=== PATIENT | male | born 1970 ===

== ENCOUNTER 2020-12-01 09:00 | Emergency (ER) | payer OTHER, SELFPAY ==
--- NOTE | ~2020-12-01 | XR_ITS ---
XR foot RT min 3V 12/01/2020 09:31 Indication: Status post fall. Right foot pain. Procedure: 4 views right foot Comparison: No prior studies for comparison. Findings: There are erosive changes involving the lateral margin of the fifth proximal and middle pha langes. Lisfranc joint intact. Mild osteoarthritis of the first MTP joint. Mild degenerative changes of the ankle. No acute fracture or traumatic malalignment. Impression: 1: No acute fracture. 2: Erosive changes lateral margins at the fifth PIP joint, suspicious for inflammatory arthritis. Co rrelate clinically. Infection is less favored in the absence of appropriate clinical findings. 3: Mild polyarticular osteoarthritis. Reviewed, dictated and finalized at location A. 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 2: Erosive changes lateral margins at the fifth PIP joint, suspicious for infl ammatory arthritis. Correlate clinically. Infection is less favored in the abse nce of appropriate clinical findings. 3: Mild polyarticular osteoarthritis.
[2020-12-01 09:21] VITALS: BP 141/97; PULSE 76; RESP 16; TEMP 36.3; O2SAT 100
--- NOTE | 2020-12-01 09:21 | ED.LOWEXIN ---
HPI - Extremity Injury (Lower) General Chief Complaint: Extremity Injury, Lower Stated Complaint: Right foot pain Source: patient and RN notes reviewed Mode of arrival: ambulatory Limitations: no limitations History of Present Illness HPI Narrative: This is a 50-year-old white male who presented to urgent care today with complaints of pain to his right foot after stepping in a hole. According to patient he stepped in a hole and heard a crack he also noted that while he had his boot on he felt as if his foot was swelling. Patient pulses are palpable, he has sensation to the right lower extremity, he is able to move his toes and foot. He does complain of pain anterior lateral side of his foot near his big toe when extending his toes outward. He also reports pain when he bears weight to the right foot. the patient denies SOB, CP, palpitation, extremity numbness, lightheadedness, dizziness, constipation, diarrhea, chills, or fever. This document was completed by using [employer] speech recognition software, therefore customer orders clerk variances may occur. Despite proofreading, typographical errors may also occur. Related Data Home Medications Medication Instructions Recorded Confirmed No Home Medications 12/01/20 12/01/20 Allergies Allergy/AdvReac Type Severity Reaction Status Date / Time No Known Allergies Allergy Verified 12/01/20 09:22 Review of Systems Review of Systems: All systems reviewed & are unremarkable except as noted in HPI and below PMFSH Social History Social History Smoking status: Never smoker Alcohol intake: never Gender identity (if verbalized by the patient): Male Exam Narrative: Exam Narrative: GENERAL: This is a well-nourished, well-developed patient, in no apparent distress. HEAD: normocephalic, atraumatic. EYES: PERRL. Sclera clear/white. Vision is grossly intact. EARS: External ears normal, auditory canals clear and without drainage, TMs normal without perforation. Hearing grossly intact. NOSE: External nose normal with no obvious nasal discharge, nares without redness, no rhinorrhea. THROAT: Mucous membranes moist, posterior pharynx clear. NECK: Neck supple, non-tender without lymphadenopathy, masses or thyromegaly. CARDIOVASCULAR: Regular rate and rhythm without murmurs, gallops, or rubs. RESPIRATORY: Clear to auscultation. Breath sounds equal bilaterally. No wheezes, rales, or rhonchi. GASTROINTESTINAL: Abdomen soft, non-tender, nondistended. Bowel sounds are active. No hepato-splenomegaly, or palpable masses. No guarding. SKIN: warm, intact with no suspicious lesions or rash, good texture and turgor. NEURO: awake, alert, and oriented to person, place and time. There were no obvious focal neurologic abnormalities. Steady gait EXTREMITIES: Normal range of motion. No edema. No calf tenderness. Negative Homans sign bilaterally. Positive with plantarflexion and dorsifexion of the right foot no edema or erythema noted. Nontender with palpation BACK: Nontender without deformity or crepitance. No flank tenderness. Course Vital Signs Vital signs: Vital Signs Temperature 97.4 F L 12/01/20 09:21 Pulse Rate 76 12/01/20 09:21 Respiratory Rate 16 12/01/20 09:21 Blood Pressure 141/97 H 12/01/20 09:21 Pulse Oximetry 100 12/01/20 09:21 Temperature 97.4 F L 12/01/20 09:21 Pulse Rate 76 12/01/20 09:21 Respiratory Rate 16 12/01/20 09:21 Blood Pressure 141/97 H 12/01/20 09:21 Pulse Oximetry 100 12/01/20 09:21 MDM - Extremity Injury (Lower) Differential Diagnosis Differential diagnosis: Likely ankle sprain and strain and ankle fracture Discharge Plan Discharge Clinical Impression: Sprain and strain Patient Disposition: Home, Self-Care Condition: Stable Instructions: Antibiotic Form, Sprain (ED) Additional Instructions: Ice to the area 20-30 minutes 4-6 times a day Elevate above h
--- NOTE | 2020-12-01 09:26 | PC.NURSE ---
0911- Pt reports he just drank a red bull
== END 2020-12-01 09:45 | disposition home or self-care (01) ==
PROVIDERS: Emergency Provider Nurse Practitioner
DX: S93.601A Unspecified sprain of right foot, initial encounter (principal); S96.911A Strain of unspecified muscle and tendon at ankle and foot level, right foot, initial encounter; W17.2XXA Fall into hole, initial encounter
CPT/HCPCS: 73630; 99213; G0463

== ENCOUNTER → 2021-09-28 09:44 | Outpatient (CLI) | payer OTHER, SELFPAY ==
--- NOTE | ~2021-09-28 | MR_ITS ---
EXAMINATION: MR hand LT wo con DATE: 09/28/2021 10:30 INDICATION: Traumatic rupture of ligament of the left middle finger TECHNIQUE: Magnetic resonance imaging (MRI) of the left hand was performed without intravenous contra st to include the metacarpals and digits. Sequences included sagittal, coronal, and axial proton-dens ity weighted fast spin echo without and with fat saturation. COMPARISON: Left hand radiographs dated 04/23/1960 FINDINGS: Bone alignment is normal. Old healed avulsion fracture at the dorsal base of the third distal phalanx . No acute fracture. Normal marrow signal with no reactive edema. No joint effusions, synovitis or er osions to suggest inflammatory arthritis. The collateral ligament complex at the metacarpophalangeal and interphalangeal joints are normal. Minimal fluid extending along the flexor tendon sheath of the third digit at the level of the neck of the metacarpal consistent with mild tenosynovitis. Tendinopat hy of the flexor tendons of the third digit which demonstrate fusiform thickening and mild increased signal at the level of the neck of the proximal phalanx. There is minimal increased separation of the flexor tendons from the volar aspect of the proximal diaphysis of the proximal phalanx in the region of the A2 lexy. Poorly along either side of the tendon appears thickened with suggestion of a part ial tear along the ulnar side of the lexy. The visualized portions of the remaining flexor and exte nsor tendons and flexor lexy systems are normal. Partially visualized ganglion cyst dorsal aspect o f the carpus which measures up to 6 x 4 mm. Visualized intrinsic musculature of the hand is unremarka ble. IMPRESSION: 1. Likely partial tear along the ulnar side of the A2 lexy of the left third digit with only neglig ible increase in the separation of the tendon and the volar aspect of the bone. There is associated m ild tendinopathy distal to the level of the A2 lexy and mild tenosynovitis proximal to the metacarp ophalangeal joint. Reviewed, dictated and finalized at location A. IMPRESSION: 1. Likely partial tear along the ulnar side of the A2 lexy of the left third digit with only negligible increase in the separation of the tendon and the vol ar aspect of the bone. There is associated mild tendinopathy distal to the leve l of the A2 lexy and mild tenosynovitis proximal to the metacarpophalangeal j oint.
== END ==
PROVIDERS: Visit Provider Plastic Surgery
DX: S63.403A Traumatic rupture of unspecified ligament of left middle finger at metacarpophalangeal and interphalangeal joint, initial encounter (principal)
CPT/HCPCS: 73218

== ENCOUNTER 2021-10-26 08:19 | Outpatient (RCR) | payer OTHER, SELFPAY ==
--- NOTE | 2021-10-26 09:38 | OTOPEVAL ---
OCCUPATIONAL THERAPY INITIAL EVALUATION REPORT 10/26/21 West is a 51 year-old, right handed male who presents to outpatient hand therapy with limited active flexion of the left middle finger's PIP joint. Initially the PIP joint was only able to flex ~65-68*. When pressure is applied to the area of the A2 lexy, active flexion of the PIP joint increases to 90-95*. Discussed these findings and how this relates to the MRI findings - A2 lexy disfunction. Issued ROM HEP to help facilitate improved flexibility of the PIP joint and to facilitate improved tendon glide. Discussed taping technique around P1 of the left middle finger to help increase the mechanical advantage of the flexor tendons at the A2 lexy. Recommend that he uses tape when lifting and with any heavy hand use. Also recommended that he continue to take a break from [email or web address] for now. Patient verbalizes excellent understanding of all materials today. No follow up appointments have been made at this time. Plan to have the patient utilize the taping technique, continue to work on ROM, and to call for a follow up as needed. Plan to leave his chart open x4 weeks to allow him to return as needed. Will plan to follow up with patient via phone call in 3 weeks if he has not contacted our office for an appointment. Due to the chronicity of the condition, prognosis is guarded. Thank you for referring West Avilez to [facility].? The patient is scheduled to be seen for therapy? 0-1x/week for 4 weeks. Please review, sign, date and return this plan of care DENNISE. I agree with and certify that the following plan of care is medically necessary. 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 He reports that during , he frequently has a sustained shredding specialist on his opponents clothing while they are trying to pull away, causing the finger to be pulled into forced extension with a sustained shredding specialist. Noticed middle finger pain back in April he was on a road trip where he had a prolonged shredding specialist on a steering wheel. This is when the finger became very sensitive and painful when he would bump or move the finger. Over the course of a few months the pain subside
--- NOTE | 2021-11-22 12:58 | PCOTNOTE ---
OCCUPATIONAL THERAPY DISCHARGE NOTE 11/22/21 Patient:West Avilez Date of :1970 West was evaluated by OT on 10/26/21. He was instructed in ROM for PIP stiffness and taping techniques to help support the A2 lexy. We did not schedule a follow up session as the patient was independent with all of the materials and agreed that a follow up was not necessary. His chart was left open x4 weeks to allow him to return on an as needed basis. At this time he has not called to schedule a follow up. Tried reaching the patient via phone call and was unsuccessful. Will be discharging the patient from OT. Please do not hesitate to re-order therapy if you find it is indicated in the future. Thank you for referring this patient to [facility]. Please review, sign, date and return this discharge summary DENNISE. I have been updated about the patient's current status and I agree with discharge from the above service at this time. Referring Physician Date Referring Provider: Etienne Ferro MD
== END 2021-11-22 15:49 | disposition home or self-care (01) ==
LOC: ANHOT 08:19
PROVIDERS: PCP Family Medicine; Visit Provider Plastic Surgery
DX: S63.633D Sprain of interphalangeal joint of left middle finger, subsequent encounter (principal)
CPT/HCPCS: 97110; 97166

== ENCOUNTER 2023-03-31 21:59 | Emergency (ER) | payer OTHER, SELFPAY ==
--- NOTE | ~2023-03-31 | XR_ITS ---
EXAMINATION: XR elbow RT 2V DATE: 03/31/2023 22:13 INDICATION: Right elbow pain. Fall. TECHNIQUE: 2 views of right elbow were obtained. COMPARISON: None. FINDINGS: Bone alignment is normal. No fracture. Joint spaces are normal. There is an enthesophyte at lateral humeral epicondyle. No elbow joint effusion. IMPRESSION: 1. No fracture. Reviewed, dictated and finalized at location A. IMPRESSION: 1. No fracture.
[2023-03-31 22:00] VITALS: BP 147/93; PULSE 86; RESP 18; TEMP 36.3; O2SAT 99
--- NOTE | 2023-03-31 23:24 | ED.UPPEXIN ---
HPI - Extremity Injury (Upper) General Chief Complaint: Extremity Injury, Upper Stated Complaint: arm injury Time Seen by Provider: 03/31/23 22:36 Source: patient Mode of arrival: ambulatory Limitations: no limitations History of Present Illness HPI narrative: Patient is a 52-year-old male who presents to the ED with report of right elbow laceration and pain. 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 He sustained a laceration to the olecranon. Complains of pain and swelling to right elbow. No other injuries. No numbness or tingling. No head injury or LOC. Tetanus unknown. Related Data Home Medications Medication Instructions Recorded Confirmed No Home Medications 12/01/20 12/01/20 Allergies Allergy/AdvReac Type Severity Reaction Status Date / Time No Known Allergies Allergy Verified 12/01/20 09:22 Review of Systems Review of Systems: CONSTITUTIONAL: Denies fever, chills, or sweats. SKIN: See HPI. MUSCULOSKELETAL: See HPI. NEUROLOGIC: Denies tingling, numbness, or weakness. All systems reviewed & are unremarkable except as noted in HPI and below PMFSH Past Medical History Medical History No pertinent past medical history Surgical History Surgical History No pertinent past surgical history Social History Social History Smoking status: Never smoker Alcohol intake: never Gender identity (if verbalized by the patient): Male Exam Narrative: GENERAL: Well appearing, well-nourished, non-toxic, in no acute distress. HEAD: Normocephalic, atraumatic. NECK: Supple. No adenopathy, no masses. RESPIRATORY: Airway patent, respirations nonlabored. CARDIOVASCULAR: Regular rate and rhythm without murmurs, rubs, or gallops. Radial pulses 2+ and equal bilaterally. MUSCULOSKELETAL: Mild limitation in range of motion of right elbow due to pain. Moderate amount of swelling diffusely throughout right elbow, particularly to olecranon. Approximately 3 cm C-shaped laceration over olecranon, minimal active bleeding. Sensation intact. No obvious bone or tendon involvement. SKIN: Warm, dry, normal color. No rashes. NEURO: A&O X3. Speech clear. Cranial nerves II-XII grossly intact. Steady gait. No ataxic movements. PSYCHIATRIC: Appropriate mood and affect. Normal interaction. Course Vital Signs Vital signs: Vital Signs Temperature 97.3 F L 03/31/23 22:00 Pulse Rate 86 03/31/23 22:00 Respiratory Rate 18 03/31/23 22:00 Blood Pressure 147/93 H 03/31/23 22:00 Pulse Oximetry 99 03/31/23 22:00 Oxygen Delivery Room Air 03/31/23 22:00 Temperature 97.3 F L 03/31/23 22:00 Pulse Rate 68 03/31/23 23:54 Respiratory Rate 17 03/31/23 23:54 Blood Pressure 150/98 H 03/31/23 23:54 Pulse Oximetry 100 03/31/23 23:54 Oxygen Delivery Room Air 03/31/23 22:00 Procedures Laceration Laceration 1: Date: 03/31/23 Time: 23:20 Site: upper extremity (elbow olecranon) Side (If applicable): right Size (cm): 3 Description: flap, irregular and clean Depth: simple, single layer Local Anesthetic: lidocaine 1% Amount of anesthesia used (mL): 6 Pre-repair: wound explored, irrigated extensively and deep structures intact ====== Skin Level ====== Skin layer closed with: nylon Size (cm): 4-0 Number of sutures: 7 Technique: simple, interrupted ====== Subcutaneous Layer ====== ====== Muscle Layer ====== ====== Tendon Layer ====== MDM - Extremity Injury (Upper) MDM Narrative Medical decision making narrative: Patient presented to ED with right elbow injury/laceration while o
[2023-03-31 23:54] VITALS: BP 150/98; PULSE 68; RESP 17; O2SAT 100
== END 2023-03-31 23:56 | disposition home or self-care (01) ==
PROVIDERS: Emergency Provider Physician Assistant
DX: S51.011A Laceration without foreign body of right elbow, initial encounter (principal); Y35.811A Legal intervention involving manhandling, law enforcement official injured, initial encounter
CPT/HCPCS: 12002; 73070; 99283